=== PATIENT | female | born 1965 | race Caucasian/White ===

== ENCOUNTER 2017-05-03 11:40 | Emergency (ER) | payer MEDICAID ==
[~2017-05-03] VITALS: Ht 170.2 cm; Wt 60.0 kg
[2017-05-03 11:51] VITALS: BP 115/46
[2017-05-03] MEDS ORDERED: MORP15TA PO (12:44)
== END 2017-05-03 13:10 | disposition home or self-care (01) ==
LOC: ER 11:41
DX: S90.31XA Contusion of right foot, initial encounter (principal); G89.29 Other chronic pain; Z88.8 Allergy status to other drugs, medicaments and biological substances; Z79.899 Other long term (current) drug therapy; X58.XXXA Exposure to other specified factors, initial encounter; Y93.89 Activity, other specified; Y92.89 Other specified places as the place of occurrence of the external cause; Y99.8 Other external cause status
CPT/HCPCS: 73630; 99284; L3260

== ENCOUNTER 2017-10-22 09:59 | Emergency (ER) | payer MEDICAID ==
[~2017-10-22] VITALS: Ht 170.2 cm; Wt 61.3 kg
[2017-10-22] MEDS ORDERED: ketorolac trometh inj. 60 MG/2 ML VIAL IM ONE (10:20)
[2017-10-22 11:18] VITALS: BP 135/89
== END 2017-10-22 11:19 | disposition home or self-care (01) ==
LOC: ER 09:59
DX: S92.591A Other fracture of right lesser toe(s), initial encounter for closed fracture (principal); G89.29 Other chronic pain; Z88.1 Allergy status to other antibiotic agents; X58.XXXA Exposure to other specified factors, initial encounter; Y93.89 Activity, other specified; Y92.89 Other specified places as the place of occurrence of the external cause; Y99.9 Unspecified external cause status
CPT/HCPCS: 73630; 96372; 99284; J1885; L4360

== ENCOUNTER 2018-11-08 14:39 | Emergency (ER) | payer MEDICAID ==
[~2018-11-08] VITALS: Ht 170.2 cm; Wt 63.6 kg
[2018-11-08 14:50] VITALS: BP 154/97
== END 2018-11-08 16:10 | disposition home or self-care (01) ==
LOC: ER 14:40
DX: S83.8X1A Sprain of other specified parts of right knee, initial encounter (principal); G89.29 Other chronic pain; Z88.1 Allergy status to other antibiotic agents; X50.1XXA Overexertion from prolonged static or awkward postures, initial encounter; Y93.89 Activity, other specified; Y92.89 Other specified places as the place of occurrence of the external cause; Y99.9 Unspecified external cause status
CPT/HCPCS: 73564; 99284

== ENCOUNTER 2018-12-18 14:17 | Emergency (ER) | payer MEDICAID ==
[~2018-12-18] VITALS: Ht 170.2 cm; Wt 62.0 kg
[2018-12-18 16:04] LABS: BASOPHILS # (AUTO) 0.1 X10'3 (0-0.2); BASOPHILS % (AUTO) 0.9 % (0-1); EOSINOPHILS # (AUTO) 0.1 X10'3 (0-0.9); EOSINOPHILS % (AUTO) 2.5 % (0-6); HEMATOCRIT 35.8 % (35.0-45.0); LYMPHOCYTES # (AUTO) 1.1 X10'3 (1.1-4.8); LYMPHOCYTES % (AUTO) 18.4 % (21-51); MEAN CORPUSCULAR HEMOGLOBIN 32.9 PG (27.0-31.0); MEAN CORPUSCULAR HGB CONC 33.4 g/dL (33.0-36.5); MEAN CORPUSCULAR VOLUME 98.6 FL (78-98); MEAN PLATELET VOLUME 7.6 FL (7.4-10.4); MONOCYTES # (AUTO) 0.3 X10'3 (0-0.9); MONOCYTES % (AUTO) 5.9 % (2-12); NEUTROPHILS # (AUTO) 4.3 X10'3 (1.8-7.7); NEUTROPHILS % (AUTO) 72.3 % (42-75); PLATELET COUNT 207 X10'3 (140-440); RED BLOOD COUNT 3.63 X10'6 (4.20-5.60); RED CELL DISTRIBUTION WIDTH 14.3 % (11.5-14.5); WHITE BLOOD COUNT 5.9 X10'3 (4.5-11.0)
[2018-12-18 16:12] LABS: ALBUMIN 4.1 G/DL (3.4-5.0); ANION GAP 15 (8-16); BLOOD UREA NITROGEN 13 MG/DL (7-18); BUN/CREATININE RATIO 16.7 (6.6-38.0); CHLORIDE 100 MMOL/L (99-107); CREATININE 0.78 MG/DL (0.40-0.90); GLUCOSE 98 MG/DL (70-104); MAGNESIUM 1.5 MG/DL (1.5-2.4); POTASSIUM 4.1 MMOL/L (3.5-5.1); SODIUM 139 MMOL/L (135-145); TOTAL CARBON DIOXIDE 23.7 MMOL/L (24-32); eGFR 77 ML/MIN
[2018-12-18 16:58] VITALS: BP 162/100
== END 2018-12-18 16:55 | disposition home or self-care (01) ==
LOC: ER 14:18
DX: R55 Syncope and collapse (principal); S32.10XA Unspecified fracture of sacrum, initial encounter for closed fracture; G89.29 Other chronic pain; F17.200 Nicotine dependence, unspecified, uncomplicated; F12.90 Cannabis use, unspecified, uncomplicated; Z88.1 Allergy status to other antibiotic agents; W18.49XA Other slipping, tripping and stumbling without falling, initial encounter; Y93.89 Activity, other specified; Y92.89 Other specified places as the place of occurrence of the external cause; Y99.9 Unspecified external cause status
CPT/HCPCS: 36415; 71045; 72131; 80048; 83735; 84484; 85025; 93005; 99284

== ENCOUNTER 2019-04-08 12:45 | Emergency (ER) | payer MEDICAID ==
[~2019-04-08] VITALS: Ht 170.2 cm; Wt 63.6 kg
[2019-04-08 13:23] VITALS: BP 135/93
[2019-04-08] MEDS ORDERED: METH-360 PO (13:52)
== END 2019-04-08 14:02 | disposition home or self-care (01) ==
LOC: ER 12:46
DX: M54.2 Cervicalgia (principal); M25.512 Pain in left shoulder; G89.29 Other chronic pain; F12.90 Cannabis use, unspecified, uncomplicated; Z88.1 Allergy status to other antibiotic agents; Z79.899 Other long term (current) drug therapy
CPT/HCPCS: 99283

== ENCOUNTER 2022-07-19 10:08 | Emergency (ER) | payer MEDICAID ==
[~2022-07-19] VITALS: Ht 167.6 cm; Wt 56.8 kg
[~2022-07-19 10:08] MED LIST: METH-360 PO
[2022-07-19 11:34] VITALS: BP 152/98
== END 2022-07-19 11:39 | disposition home or self-care (01) ==
LOC: ER 10:09
DX: R41.82 Altered mental status, unspecified (principal); I10 Essential (primary) hypertension; G89.29 Other chronic pain; M54.9 Dorsalgia, unspecified; Z88.1 Allergy status to other antibiotic agents; W19.XXXA Unspecified fall, initial encounter; Z88.8 Allergy status to other drugs, medicaments and biological substances; Y93.89 Activity, other specified; Y92.89 Other specified places as the place of occurrence of the external cause; Y99.8 Other external cause status
CPT/HCPCS: 70450; 99284

== ENCOUNTER 2023-02-25 19:09 | Inpatient (IN) | payer MEDICAID ==
[~2023-02-25] VITALS: Ht 165.1 cm; Wt 52.5 kg
[2023-02-25 20:13] LABS: ALANINE AMINOTRANSFERASE 26 U/L (12-78); ALBUMIN 3.8 G/DL (3.4-5.0); ALKALINE PHOSPHATASE 86 IU/L (46-116); ANION GAP 14 (8-16); ASPARTATE AMINO TRANSFERASE 32 U/L (10-37); BILIRUBIN,TOTAL 0.4 MG/DL (0.1-1.0); BLOOD UREA NITROGEN 8 MG/DL (7-18); BUN/CREATININE RATIO 8.3 (10.0-20.0); CALCIUM 9.7 MG/DL (8.5-10.1); CHLORIDE 93 MMOL/L (99-107); CREATININE 0.96 MG/DL (0.40-0.90); GLUCOSE 88 MG/DL (70-104); POTASSIUM 4.1 MMOL/L (3.5-5.1); SODIUM 128 MMOL/L (135-145); TOTAL CARBON DIOXIDE 21.1 MMOL/L (24-32); TOTAL PROTEIN 7.8 G/DL (6.4-8.2); eCRCL 57 ML/MIN; eGFR 59 ML/MIN
[2023-02-25 20:16] LABS: ETHANOL 78 MG/DL (<10)
[2023-02-25 20:29] LABS: BASOPHILS # (AUTO) 0.1 X10'3 (0-0.2); BASOPHILS % (AUTO) 0.9 % (0-1); EOSINOPHILS # (AUTO) 0.1 X10'3 (0-0.9); EOSINOPHILS % (AUTO) 1.5 % (0-6); HEMATOCRIT 40.3 % (35.0-45.0); HEMOGLOBIN 13.6 g/dl (12.0-16.0); LYMPHOCYTES # (AUTO) 2.4 X10'3 (1.1-4.8); LYMPHOCYTES % (AUTO) 40.5 % (21-51); MEAN CORPUSCULAR HEMOGLOBIN 34.2 PG (27.0-31.0); MEAN CORPUSCULAR HGB CONC 33.7 g/dL (33.0-36.5); MEAN CORPUSCULAR VOLUME 101.6 FL (78-98); MEAN PLATELET VOLUME 7.2 FL (7.4-10.4); MONOCYTES # (AUTO) 0.5 X10'3 (0-0.9); MONOCYTES % (AUTO) 8.1 % (2-12); PLATELET COUNT 268 X10'3 (140-440); RED BLOOD COUNT 3.97 X10'6 (4.20-5.60); RED CELL DISTRIBUTION WIDTH 13.8 % (11.5-14.5)
[2023-02-25 21:05] LABS: BILIRUBIN,URINE NEGATIVE (Neg); COLOR,URINE YELLOW (Yellow); GLUCOSE, URINE NEGATIVE (Neg); KETONES,URINE TRACE mg/dl (Neg); LEUKOCYTE ESTERASE ,URINE NEGATIVE (Neg); NITRITES, URINE NEGATIVE (Neg); OCCULT BLOOD,URINE NEGATIVE (Neg); PH,URINE 5.5 (4.8-8.0); PROTEIN,URINE NEGATIVE (Neg); UROBILINOGEN,URINE 0.2 E.U/dL (0.2-1.0)
[2023-02-25 21:07] LABS: URINE AMPHETAMINE SCREEN NEGATIVE (Neg); URINE BARBITUATE SCREEN NEGATIVE (Neg); URINE BENZODIAZEPINES SCREEN NEGATIVE (Neg); URINE CANNABINOID SCREEN POSITIVE (Neg); URINE COCAINE SCREEN NEGATIVE (Neg); URINE METHADONE SCREEN NEGATIVE (Neg); URINE OPIATE SCREEN POSITIVE (Neg); URINE PHENCYCLIDINE SCREEN NEGATIVE (Neg)
[2023-02-25 21:28] LABS: UA COLLECTION TYPE STRAIGHT CATH
[2023-02-25 21:29] LABS: BACTERIA,URINE FEW /HPF (Neg); CLARITY,URINE SLIGHTLY CLOUDY (Clear); RBC,URINE 0-2 /HPF (0-2); SQUAMOUS EPITHELIAL CELL,UR FEW /LPF (FEW); WBC,URINE 0-4 /HPF (0-4)
--- NOTE | 2023-02-25 22:00 | NUR ---
PT YELLING AT STAFF MAKING DEMANDS FOR [employer] TEAS, A MENU AND AN ENQUIRER MAGAZINE. A/O X4 WITH D/P AND D/G. RIPPING ALL LEADS/ MONITORS OFF ATTEMPTING TO SELF TRANSFER FROM [facility]. PT MOVED TO A ROOM CLOSER TO NURSES STATION FOR DIRECT LINE OF SIGHT SUPERVISION. NOTIFIED OF BEHAVIOR. CONT TO YELL AT STAFF AND MAKE INNAPROPRIATE SEXUAL COMMENTS, "THIS IS THE BEST SEX I EVER HAD."
[2023-02-25] MEDS ORDERED: acetaminophen 325mg tablet PO STA (22:33)
[2023-02-25] MEDS ORDERED: haloperidol lactate 5mg/ml inj IM ONE (22:35)
[2023-02-25] MEDS ORDERED: normal saline 1000ML IV soln IV ONE (22:35)
[2023-02-25] MEDS ORDERED: diphenhydrAMINE 50 mg/ml inj IM ONE (22:35)
[2023-02-25] MEDS ORDERED: aspirin 81mg tab.chew PO ONE (22:35)
[2023-02-25] MEDS ORDERED: CefTRIAXone 2gm/D5W 50ml BAG 50 ML IV ONE (22:35)
[2023-02-25] MEDS ORDERED: ondansetron/PF 4mg/2ml inj IV ONE (22:35)
[2023-02-25] MEDS ORDERED: LORazepam 2 mg/ml vial IM ONE (22:35)
[2023-02-25] MEDS ORDERED: pantoprazole 40MG/NS 100ML BAG 100 ML IV ONE (22:50)
--- NOTE | 2023-02-25 23:07 | NUR ---
Funmi eagle in [facility] - 02/25/23 at 2317 by BART CALLED [facility] FOR TRANSPORTATION
[2023-02-25 23:15] LABS: LIPASE 42 U/L (16-77); PRO BRAIN NATRIURETIC PEPTIDE 139 PG/ML (0-125)
--- NOTE | 2023-02-25 23:23 | NUR ---
MEDS (HALDOL, ATIVAN, BENADRYL) ADMIN PER ORDER W/ NO ASE. PT IS STILL CURSING AT STAFF. PT BROTHER AT BEDSIDE. VSS. CONT TO RIP OFF LEADS AND MONITORS. IV MEDS DELAYED D/T BEHAVIOR AND TOLERANCE. NOTIFIED.
[2023-02-25 23:53] LABS: APTT 28 SECONDS (22-32); INR 0.9 INR; PROTHROMBIN TIME 10.1 SECONDS (9.0-12.0)
[2023-02-26] MEDS ORDERED: ondansetron/PF 4mg/2ml inj IV PRN (02:00)
[2023-02-26] MEDS ORDERED: potassium Cl 40MEQ/1/2NS 520ml 520 ML IV PRN (02:00)
[2023-02-26] MEDS ORDERED: potassium Cl 20 mEq SR tablet PO PRN ×2 (02:00)
[2023-02-26] MEDS ORDERED: magnesium 2GM in 50ml NS 50 ML IV PRN (02:00)
[2023-02-26] MEDS ORDERED: magnesium hydroxide 30ml (MOM) UD suspension PO PRN (02:00)
[2023-02-26] MEDS ORDERED: mag hydrox/Alum hydrox/simeth 30ml oral suspension PO PRN (02:00)
[2023-02-26] MEDS ORDERED: magnesium 4gm in 100ml NS 100 ML IV PRN (02:00)
[2023-02-26] MEDS ORDERED: haloperidol 5mg tablet PO PRN (02:00)
[2023-02-26] MEDS ORDERED: acetaminophen 325mg tablet PO PRN ×2 (02:00)
[2023-02-26] MEDS ORDERED: HYDROcodone/acetaminophen 5mg/325mg tablet PO PRN (02:00)
[2023-02-26] MEDS ORDERED: haloperidol lactate 5mg/ml inj IM PRN (02:00)
[2023-02-26] MEDS ORDERED: LORazepam 2 mg/ml vial IV PRN (02:00)
[2023-02-26] MEDS: normal saline 1000ml 1,000 ML IV SCH ×3 (02:28→22:00)
--- NOTE | 2023-02-26 05:52 | NUR ---
CALL TO HOSPITALIST TO NOTIFY THAT PT FAMILY IS REQUESTING A SALT MACHINE OPERATOR CONSULT. AGREEABLE W/ REQUEST AND STATES HE WILL PUT THE ORDER IN.
--- NOTE | 2023-02-26 06:41 | NUR ---
Patient in room ED 8. I have received report from Brandi in the ED and had the opportunity to ask questions and assume patient care.
--- NOTE | 2023-02-26 06:43 | NUR ---
GAVE REPORT TO JOVANNI ALLEN ON ORTHO. PT WILL BE GOING UP ON GURMABANK, ROOM AIR. PT IS RESTING IN BED.
[2023-02-26] MEDS ORDERED: TRAZ150T78 PO (06:48)
[2023-02-26] MEDS ORDERED: LISI20TA28 PO (06:49)
[2023-02-26] MEDS ORDERED: HYDR-3973 PO (06:49)
[2023-02-26 07:15] VITALS: BP 124/99; PULSE 69; RESP 16; TEMP 97; O2SAT 95
[2023-02-26] MEDS: K and/or MAG REPLACEMENT MC SCH ×2 (07:41→20:00)
[2023-02-26] MEDS: docusate sod 100mg capsule PO SCH ×2 (07:44→20:00)
[2023-02-26 07:45] VITALS: RESP 16; O2SAT 95
[2023-02-26] MEDS: thiamine 100mg tablet PO SCH ×3 (07:45→19:46)
[2023-02-26] MEDS: multivitamins, therapeutics tablet PO SCH (07:45)
[2023-02-26] MEDS ORDERED: pantoprazole 40 MG vial IV SCH (08:00)
--- NOTE | 2023-02-26 08:40 | NUR ---
Paged environmental services specialist per family request
[2023-02-26 08:45] LABS: EOSINOPHILS # (AUTO) 0.1 X10'3 (0-0.9); EOSINOPHILS % (AUTO) 1.8 % (0-6); HEMATOCRIT 33.2 % (35.0-45.0); HEMOGLOBIN 11.2 g/dl (12.0-16.0); LYMPHOCYTES # (AUTO) 1.6 X10'3 (1.1-4.8); LYMPHOCYTES % (AUTO) 40.3 % (21-51); MEAN CORPUSCULAR HEMOGLOBIN 34.6 PG (27.0-31.0); MEAN CORPUSCULAR HGB CONC 33.7 g/dL (33.0-36.5); MEAN CORPUSCULAR VOLUME 102.8 FL (78-98); MEAN PLATELET VOLUME 7.8 FL (7.4-10.4); MONOCYTES # (AUTO) 0.3 X10'3 (0-0.9); MONOCYTES % (AUTO) 7.5 % (2-12); NEUTROPHILS % (AUTO) 49.4 % (42-75); PLATELET COUNT 181 X10'3 (140-440); RED BLOOD COUNT 3.23 X10'6 (4.20-5.60); RED CELL DISTRIBUTION WIDTH 13.6 % (11.5-14.5)
[2023-02-26 09:08] LABS: MAGNESIUM 1.6 MG/DL (1.5-2.4); POTASSIUM 4.2 MMOL/L (3.5-5.1)
[2023-02-26 10:00] VITALS: BP 138/86; PULSE 81; RESP 16; TEMP 97.3; O2SAT 100
[2023-02-26 10:45] VITALS: RESP 16; O2SAT 98
[2023-02-26] MEDS ORDERED: pneumococcal 23-VAL P-sac vacc 25 mcg/0.5ml vial IMVAC ONE (13:50)
[2023-02-26] MEDS ORDERED: FLU VACC QS2023-24(6MOS UP)/PF 60 MCG/0.5 ML SYRINGE IM ONE (13:50)
[2023-02-26 18:00] VITALS: BP 157/93; PULSE 80; RESP 18; TEMP 97.6; O2SAT 98
--- NOTE | 2023-02-26 18:00 | NUR ---
Patient in room ORTHO 4009. I have received report from JOVANNI Leonardo and had the opportunity to ask questions and assume patient care.
--- NOTE | 2023-02-26 18:35 | NUR ---
Problems reprioritized. Patient report given, questions answered & plan of care reviewed with Alana.
[2023-02-26] MEDS: HYDROcodone/acetaminophen 10/325mg tab PO PRN (18:59)
[2023-02-26] MEDS ORDERED: enoxaparin 40mg/0.4ml syringe SQ SCH (20:00)
--- NOTE | 2023-02-26 20:00 | NUR ---
pt refused to have blood sugar taken. pt. agitated at this time. will continue to monitor. Addendum: 02/26/23 at 2200 by Alana Heredia RN Amended: Links added.
[2023-02-26 22:00] VITALS: BP 138/102; PULSE 75; RESP 13; TEMP 97.6; O2SAT 92
--- NOTE | 2023-02-26 22:01 | NUR ---
not done Addendum: 02/26/23 at 2201 by Alana Heredia RN Amended: Links added.
--- NOTE | 2023-02-27 01:23 | NUR ---
Dr. Malhotra, Pt in 6544C, Washta has a blood sugar of 54. yogurt, jello, coffee cream n sugar given. thanks, daniel [phone]
--- NOTE | 2023-02-27 01:23 | NUR ---
yogurt, jello, coffee c 6 creams and 6 sugars given. Addendum: 02/27/23 at 0124 by Alana Heredia RN Amended: Links added.
--- NOTE | 2023-02-27 06:19 | NUR ---
Problems reprioritized. Patient report given, questions answered & plan of care reviewed with JOVANNI Lewis.
[2023-02-27 07:10] LABS: BASOPHILS % (AUTO) 1.1 % (0-1); EOSINOPHILS # (AUTO) 0.1 X10'3 (0-0.9); EOSINOPHILS % (AUTO) 2.4 % (0-6); HEMATOCRIT 32.7 % (35.0-45.0); HEMOGLOBIN 11.1 g/dl (12.0-16.0); LYMPHOCYTES # (AUTO) 0.7 X10'3 (1.1-4.8); MEAN CORPUSCULAR HEMOGLOBIN 34.7 PG (27.0-31.0); MEAN CORPUSCULAR HGB CONC 34.1 g/dL (33.0-36.5); MEAN CORPUSCULAR VOLUME 101.9 FL (78-98); MEAN PLATELET VOLUME 7.4 FL (7.4-10.4); MONOCYTES # (AUTO) 0.2 X10'3 (0-0.9); MONOCYTES % (AUTO) 6.1 % (2-12); NEUTROPHILS # (AUTO) 2.8 X10'3 (1.8-7.7); NEUTROPHILS % (AUTO) 71.4 % (42-75); PLATELET COUNT 177 X10'3 (140-440); RED BLOOD COUNT 3.21 X10'6 (4.20-5.60); RED CELL DISTRIBUTION WIDTH 13.3 % (11.5-14.5); WHITE BLOOD COUNT 3.9 X10'3 (4.5-11.0)
[2023-02-27 07:14] LABS: PROTHROMBIN TIME 10.4 SECONDS (9.0-12.0)
--- NOTE | 2023-02-27 07:15 | NUR ---
Patient in room ORTHO 4009. I have received report from JOVANNI Warner and had the opportunity to ask questions and assume patient care.
[2023-02-27 07:19] LABS: ANION GAP 7 (8-16); BLOOD UREA NITROGEN 8 MG/DL (7-18); BUN/CREATININE RATIO 9.6 (10.0-20.0); CALCIUM 9.2 MG/DL (8.5-10.1); CHLORIDE 97 MMOL/L (99-107); CREATININE 0.83 MG/DL (0.40-0.90); GLUCOSE 90 MG/DL (70-104); MAGNESIUM 1.2 MG/DL (1.5-2.4); PHOSPHORUS 4.4 MG/DL (2.3-4.5); POTASSIUM 3.9 MMOL/L (3.5-5.1); SODIUM 129 MMOL/L (135-145); TOTAL CARBON DIOXIDE 25.1 MMOL/L (24-32); eCRCL 60 ML/MIN; eGFR 70 ML/MIN
[2023-02-27 07:20] LABS: ALANINE AMINOTRANSFERASE 18 U/L (12-78); ALKALINE PHOSPHATASE 80 IU/L (46-116); ASPARTATE AMINO TRANSFERASE 24 U/L (10-37); BILIRUBIN,TOTAL 0.3 MG/DL (0.1-1.0); LIPASE 34 U/L (16-77); TOTAL PROTEIN 6.1 G/DL (6.4-8.2)
[2023-02-27 07:51] VITALS: RESP 16; O2SAT 98
--- NOTE | 2023-02-27 07:53 | NUR ---
3-4 SECOND PEDAL CAPILLARY REFILL Addendum: 02/27/23 at 0808 by Indu ACEVEDO Amended: Links added.
[2023-02-27] MEDS ORDERED: lisinopril 20mg tablet PO SCH (08:00)
[2023-02-27] MEDS: thiamine 100mg tablet PO SCH (08:00)
[2023-02-27] MEDS: multivitamins, therapeutics tablet PO SCH (08:00)
[2023-02-27] MEDS: docusate sod 100mg capsule PO SCH (08:00)
[2023-02-27 08:28] VITALS: BP_SYST 142; PULSE 84
[2023-02-27 08:29] VITALS: RESP 16
[2023-02-27] MEDS: HYDROcodone/acetaminophen 10/325mg tab PO PRN (08:29)
--- NOTE | 2023-02-27 14:03 | NUR ---
PRESSURE ULCER EDUCATION: DEFINITION: A pressure ulcer is an area of skin that breaks down when you stay in one position too long. The constant pressure against the skin reduces the blood flow to that area and the affected tissue dies. CAUSES: "Being bedridden or in a wheelchair "Fragile skin "Having a chronic condition, such as diabetes or vascular disease "Inability to move certain parts of your body without assistance "Older age "Incontinence of urine or stool SYMPTOMS: "A reddened area that DOES NOT turn white when pressed on - this can be the beginning of a pressure ulcer "A blister, deep sore or a crater - these can be advanced pressure ulcers FIRST AID: "Relieve the pressure on this area "Keep the area clean and dry "Call your primary doctor if you see any of the above symptoms "DO NOT massage the area "DO NOT use a donut shaped or ring shaped pillow- these actually interfere with the blood flow and cause complications PREVENTION: "Check for pressure ulcers everyday "Change position at least every two hours to relieve pressure "Use items that help relieve pressure- pillows, sheepskin, foam padding, and powders. "Keep skin clean and dry "Eat healthy well balanced meals "Exercise daily IF YOU SEE ANY OF THESE SYMPTOMS WHILE IN THE HOSPITAL - TELL YOUR NURSE IMMEDIATELY. IF YOU SEE ANY OF THESE SYMPTOMS WHILE AT HOME OR HAVE ANY QUESTIONS OR CONCERNS ABOUT PRESSURE ULCERS - CALL YOUR PRIMARY DOCTOR IMMEDIATELY. Addendum: 02/27/23 at 1403 by Rhea Otero LVN Amended: Links added.
--- NOTE | 2023-02-27 19:12 | NUR ---
pt discharged to home with brother in private vehicle. all belongings sent with pt. iv dcd by day nurse. pt. in stable condition.
[2023-02-27] MEDS ORDERED: SODI100035 PO (19:14)
[2023-02-27] MEDS ORDERED: THIA50TA10 PO (19:16)
[2023-02-27] MEDS ORDERED: FOLI0.4T6 PO (19:16)
[2023-02-27] MEDS ORDERED: MULT-1219 PO (19:16)
[2023-02-28] MEDS ORDERED: LORazepam 1 MG tablet PO PRN (02:00)
[2023-02-28] MEDS ORDERED: LORazepam 2 mg/ml vial IV PRN (02:00)
[2023-03-02] MEDS ORDERED: LORazepam 1 MG tablet PO PRN (02:00)
[2023-03-02] MEDS ORDERED: LORazepam 2 mg/ml vial IV PRN (02:00)
[2023-03-02] MEDS ORDERED: folic acid 1mg tablet PO SCH (08:00)
== END 2023-02-27 19:12 | disposition home or self-care (01) | DRG 52 ==
LOC: ER 19:09 → ED HOLD 02-26 02:06 → ORTHO 4S 02-26 07:09
PROVIDERS: ADMIT Family Medicine; ATTEND Internal Medicine
DX: G92.8 Other toxic encephalopathy (principal); G31.2 Degeneration of nervous system due to alcohol; E87.1 Hypo-osmolality and hyponatremia; R45.851 Suicidal ideations; F10.20 Alcohol dependence, uncomplicated; F11.10 Opioid abuse, uncomplicated; I10 Essential (primary) hypertension; I25.10 Atherosclerotic heart disease of native coronary artery without angina pectoris; F32.A Depression, unspecified; F29 Unspecified psychosis not due to a substance or known physiological condition; M54.9 Dorsalgia, unspecified; G89.29 Other chronic pain; R79.89 Other specified abnormal findings of blood chemistry; F12.90 Cannabis use, unspecified, uncomplicated; Z88.1 Allergy status to other antibiotic agents
CPT/HCPCS: 36415; 70450; 71045; 80053; 80305; 80320; 81001; 82140; 82948; 83605; 83690; 83735; 83880; 84100; 84132; 84145; 84484; 85025; 85610; 85730; 87040; 87081; 90686; 90732; 92508; 92616; 97116; 97161; 99285; A4353; A6212; C9113; G0378; J0696; J1200; J1630; J2060; J2405; J7030

== ENCOUNTER 2024-12-29 12:14 | Inpatient (IN) | payer MEDICAID ==
[~2024-12-29] VITALS: Ht 165.1 cm; Wt 54.2 kg
[~2024-12-29 12:14] MED LIST changes: +HYDR-3973 PO; +LISI20TA28 PO; -METH-360 PO; +MULT-1219 PO; +SODI100035 PO; +THIA50TA10 PO; +TRAZ150T78 PO
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
--- NOTE | 2024-12-29 12:34 | ELECTROCARDIOGRAPH REPORT ---
[facility] Test Date: 2024-12-29 Test Time: 12:22:12 Pat Name: SIMÓN HENAO Department: EMERGENCY ROOM Room: ORTHO [facility] [place][note 2]2 Gender: F Electrical Mechanic: JUAN JOSÉ : 1965 Requested By: ELEANOR AKINS Order Number: [id number] Reading MD: Dr. Oscar Cruz Measurements Intervals [place] Rate: 88 P: 74 AR: 140 QRS: 53 QRSD: 88 T: 36 QT: 348 QTc: 421 Interpretive Statements Sinus rhythm Probable left atrial enlargement Low voltage, precordial leads Electronically Signed On 12-31-2024 21:44:[address] Oscar Cruz Please click the below link to view image of tracing.
[2024-12-29 12:46] LABS: CREATININE 0.89 MG/DL (0.40-0.90); TOTAL CARBON DIOXIDE 28.2 MMOL/L (24-32); eCRCL 56 ML/MIN; eGFR 64 ML/MIN
[2024-12-29 12:50] LABS: APTT 27 SECONDS (22-32); INR 1.0 INR
[2024-12-29 12:55] LABS: MEAN PLATELET VOLUME 7.9 FL (7.4-10.4); RED CELL DISTRIBUTION WIDTH 14.3 % (11.5-14.5)
--- NOTE | 2024-12-29 12:56 | RADIOLOGY REPORT ---
EXAM: CT CT STROKE ALERT INDICATION: Stroke Alert TECHNIQUE: CT of the head without intravenous contrast. Radiation Dose : 1. Head: CT Dose: CTDI volume is 47.1 mGy. Dose-length product is 771.5 mGy*cm The dose indicators for CT are the volume Computed Tomography (CT) Dose Index (CTDIvol) and the Dose Length Product (DLP), and are measured in units of mGy and mGy-cm, respectively. These indicators are not patient dose, but values generated from the CT scanner acquisition factors. The report includes radiation exposure data for exposures received during this examination. COMPARISON: CT CT HEAD on DOS: 02/25/23, CT HEAD on DOS: 07/19/22 FINDINGS: There is no evidence of acute intracranial hemorrhage, extra-axial collection, mass effect, midline shift, herniation or hydrocephalus. The ventricles, sulci and cisterns are age appropriate. The herrera-white differentiation is intact. Patchy periventricular and subcortical white matter hypoattenuation is nonspecific but may be related to small vessel ischemic disease. The visualized paranasal sinuses and mastoid air cells are clear. The surrounding soft tissues and osseous structures are unremarkable. IMPRESSION: No acute intracranial abnormality. Radiation optimization: All CT scans at this facility use at least one of these dose optimization techniques: automated exposure control? mA and/or kV adjustment per patient size (includes targeted exams where dose is matched to clinical indication)? or iterative reconstruction.
--- NOTE | 2024-12-29 13:01 | RADIOLOGY REPORT ---
CHEST RADIOGRAPH Indication: Stroke Alert Technique: Single frontal view of the chest was obtained COMPARISON: DI CHEST,SINGLE VIEW on DOS: 02/25/23, CHEST,SINGLE VIEW on DOS: 12/18/18 FINDINGS: Lines and Tubes: None Lungs: Clear Pleura: No effusion. No pneumothorax. Cardiomediastinal contours: Unremarkable Bones: Unremarkable IMPRESSION: No acute disease.
--- NOTE | 2024-12-29 19:45 | [facility] CONSULT REPORT ---
[facility] Procedure Note [facility] Procedure Note Consult [facility] Note # Demographics Consult Type: Acute Stroke Level 2 (4.5-24 hrs) Patient Location: Emergency Room First Name: SIMÓN Last Name: EARLENE Date of : 1965 Age: 59 Gender: Female Facility: [facility] Time of Initial Page (): 12/29/2024 19:10 First Contact with Site (): 12/29/2024 19:11 # HPI Chief Complaint: - seizure History: 59 y/o F had an episode of possible seizure. She states on Saturday she had an episode where she had visual changes (which she describes as fast moving vision and white lights), her thought process was "messed up," and it lasted 15 minutes. After she had some transient L facial numbness. She has a history of a TBI. She says she was diagnosed with "seizures" last week. She said she has had 4 episodes. She had one episode where her brother told her that she was unresponsive and her eyes was glazed over for two minutes, at which time she was standing. She says she has never lost awareness and she knew her brother was in front of her. She says the other two episodes were "head rushes." No tongue biting, loss of bowel/bladder control, history of seizures, weakness, headache. She endorses chronic numbness in her feet. She has baseline R sided numbness. # Scores Time of exam and NIHSS (): 12/29/2024 19:28 Level of Consciousness 1a: [0] = Alert; keenly responsive LOC Questions 1b: [0] = Answers both questions correctly LOC Commands 1c: [0] = Performs both tasks correctly Best Gaze 2: [0] = Normal Visual 3: [0] = No visual loss Facial Palsy 4: [0] = Normal symmetrical movements Motor Arm Left 5a: [0] = No drift Motor Arm Right 5b: [0] = No drift Motor Leg Left 6a: [0] = No drift Motor Leg Right 6b: [0] = No drift Limb Ataxia 7: [0] = Absent Sensory 8: [1] = Dcwq-cu-skensiyw sensory loss Best Language 9: [0] = No aphasia Dysarthria 10: [0] = Normal Extinction and Inattention 11: [0] = No abnormality NIHSS Total: 1 # Exam SBP: 147 DBP: 112 Sensory: - decreased sensation right upper extremity - decreased sensation right lower extremity chronic as per patient # PMH-FH-SH Past Medical History: - hypertension TBI Medications: - antihypertensive trazodone, gabapentin, norco # Data Head CT: - no bleed - per radiologist read # Assessment Impression: - Seizure-like Activity Episodes may be secondary to seizure but are a bit atypical so would pursue work-up first with MRI/EEG, if they are abnormal, may want to consider anti- seizure medication but would have Neuro f/u at that time # Plan Labs: - CBC - comprehensive metabolic panel - ua - TSH - troponin orthostatic vital signs Imaging: (urgency: routine): - MRI Brain with AND without contrast Diagnostic Test: - EEG Other: - If patient has any neurological deterioration please call me back immediately - telemetry monitoring - I have discussed my recommendations with the referring provider - seizure precautions # Logistics Attestation of consult completion: The patient is located at: [facility]. Facility staff participated in the visit. I performed this telemedicine visit from my offsite office utilizing interactive 2 way audio and visual telecommunication technology at the request of the onsite emergency room provider. Total time spent in telemedicine encounter: I spent 30 minutes reviewing clin ical data and/or imaging, obtaining history, examining the patient, communicating with the onsite care team, and in preparation of this report. # Demographics First Name: SIMÓN Last Name: EARLENE Facility: [facility] Electronically signed at 12/29/2024 19:45 (Stewart Time) by Lavon Denise MD Neuro Consult Order placed for: Yes LAVON DENISE MD Dec 29, 2024 19:45
[2024-12-29] MEDS ORDERED: magnesium sulf-water 2g/50mL 50 ML IV PRN (21:05)
[2024-12-29] MEDS ORDERED: potassium Cl 20 mEq SR tablet PO PRN ×2 (21:05)
[2024-12-29] MEDS ORDERED: magnesium hydroxide 30ml (MOM) UD suspension PO PRN (21:05)
[2024-12-29] MEDS ORDERED: potassium Cl 40MEQ/1/2NS 520ml 520 ML IV PRN (21:05)
[2024-12-29] MEDS ORDERED: magnesium sulf-water 4G/100mL 100 ML IV PRN (21:05)
[2024-12-29] MEDS ORDERED: ondansetron/PF 4mg/2ml inj IV PRN (21:05)
[2024-12-29] MEDS ORDERED: mag hydrox/Alum hydrox/simeth 30ml oral suspension PO PRN (21:05)
[2024-12-29 21:44] LABS: APTT 28 SECONDS (22-32); INR 1.0 INR
[2024-12-29 21:56] LABS: CREATININE 0.84 MG/DL (0.40-0.90); PHOSPHORUS 4.3 MG/DL (2.3-4.5); PRO BRAIN NATRIURETIC PEPTIDE 152 PG/ML (0-125); TOTAL CARBON DIOXIDE 26.5 MMOL/L (24-32); eCRCL 59 ML/MIN; eGFR 69 ML/MIN
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
[2024-12-29 22:43] VITALS: BP 132/78; PULSE 63; RESP 15; TEMP 97.7; O2SAT 99
[2024-12-29] MEDS ORDERED: GABA300T28 PO (23:49)
[2024-12-29] MEDS ORDERED: LIDO700A47 TOP (23:49)
[2024-12-30 02:00] VITALS: BP 108/77; PULSE 70; RESP 15; TEMP 96.9; O2SAT 98
[2024-12-30 05:29] LABS: MEAN PLATELET VOLUME 7.8 FL (7.4-10.4); RED CELL DISTRIBUTION WIDTH 14.0 % (11.5-14.5)
[2024-12-30 05:44] LABS: CHOL/HDL RATIO 2.7 (0.00-4.99); CREATININE 0.87 MG/DL (0.40-0.90); LDL CHOLESTEROL 79 MG/DL (50-100); TOTAL CARBON DIOXIDE 26.7 MMOL/L (24-32); eCRCL 58 ML/MIN; eGFR 66 ML/MIN
[2024-12-30 06:00] VITALS: BP_SYST 100; BP_SYST 158; BP_DIAS 68; BP_DIAS 76; PULSE 59; PULSE 80; RESP 12; RESP 15; TEMP 96.5; TEMP 97.7; O2SAT 93; O2SAT 99
[2024-12-30] MEDS: multivitamins, therapeutics tablet PO SCH (07:40)
[2024-12-30] MEDS: magnesium Cl slow-release 64mg tablet PO PRN (07:41)
[2024-12-30] MEDS: docusate sod 100mg capsule PO SCH (07:43)
[2024-12-30] MEDS: K and/or MAG REPLACEMENT MC SCH (07:44)
[2024-12-30 08:00] VITALS: BP_SYST 124; BP_SYST 129; BP_SYST 136; BP_DIAS 82; BP_DIAS 87; BP_DIAS 88; PULSE 59; PULSE 65; PULSE 82
--- NOTE | 2024-12-30 08:41 | RADIOLOGY REPORT ---
CLINICAL INDICATION: Stroke COMPARISON: CT dated 12/29/2024. TECHNIQUE: Multisequence multiplanar MRI images of the brain were obtained prior to and after the uneventful administration of gadolinium contrast. contrast. FINDINGS: No acute infarct or hemorrhage. No mass or midline shift. Scattered areas of T2/FLAIR hyperintense signal in the periventricular and subcortical white matter are nonspecific, but most likely sequelae of chronic small vessel ischemic disease. More focal area of encephalomalacia in the left superior frontoparietal region, likely sequelae of old infarct. No abnormal parenchymal or meningeal enhancement. Ventricles and sulci are within normal limits. Basal cisterns are patent. Cerebellum, brainstem, and midline structures are within normal limits. Mild mucosal thickening of the paranasal sinuses. Orbits are grossly unremarkable. IMPRESSION: 1. No evidence of acute intracranial abnormality. 2. No mass or abnormal postcontrast enhancement. 3. Nonacute findings as described above.
[2024-12-30] MEDS ORDERED: GADOTERATE MEGLUMINE 7.5 MMOL/15 ML VIAL IV ONE (09:44)
[2024-12-30 10:00] VITALS: BP 136/88; PULSE 59; RESP 12; TEMP 97.9; O2SAT 98
[2024-12-30] MEDS: HYDROcodone/acetaminophen 10/325mg tab PO PRN (10:43)
--- NOTE | 2024-12-30 10:58 | PROCEDURE NOTE ---
Procedure Note Providers to CC ~ Interpretation: [place] EEG Note # Demographics Type of EEG Read: - Routine EEG - video Patient Location: Inpatient First Name: Shelly Last Name: Edilberto Date of : 1965 Age: 59 Gender: Female Facility: [facility] Time of Initial Page (): 12/30/2024 09:25 First Contact with Site ( Time): 12/30/2024 09:43 # EEG Interpretation Start Time of EEG Read (): 12/30/2024 09:49 Stop Time of EEG Read (): 12/30/2024 10:09 Duration: 0h 20m Technical Details: - The EEG electrodes were placed using the standard International 10-20 system of electrode placement. Video and an accessory EKG lead were used during the course of this study. Indication: - seizure # Description Photic Stimulation: Performed Hyperventilation: NOT performed Phases Captured: - awake - drowsy - sleep Symmetry: symmetric Posterior Dominant Rhythm: - present, attenuates on eye opening 9Hz Predominant Frequencies: - posterior dominant alpha (8-12 Hz) - abundant (50-89%) Superimposed Frequencies: - beta (>15 Hz) - abundant (50-89%) Amplitude: normal Reactivity: yes Variability: yes Continuity: continuous # Abnormalities Stimulation: - photic stimulation does NOT cause abnormalities Epileptiform Abnormalities: - NOT present Focal Slowing: no Seizure: - NOT present # Impression Impression: normal # Clinical Correlation Clinical Correlation: A normal EEG does not exclude nor support the diagnosis of epilepsy. # Logistics Telemedicine: remote EEG review: EEG reviewed remotely # Demographics First Name: Shelly Last Name: Edilberto Facility: [facility] JENNIFER LLANOS MD Dec 30, 2024 10:58
[2024-12-30] MEDS ORDERED: GABA300C PO ×2 (11:43→11:58)
[2024-12-30 12:06] LABS: URINE AMPHETAMINE SCREEN NEGATIVE (Neg); URINE BARBITUATE SCREEN NEGATIVE (Neg); URINE BENZODIAZEPINES SCREEN NEGATIVE (Neg); URINE CANNABINOID SCREEN POSITIVE (Neg); URINE COCAINE SCREEN NEGATIVE (Neg); URINE METHADONE SCREEN NEGATIVE (Neg); URINE OPIATE SCREEN POSITIVE (Neg); URINE PHENCYCLIDINE SCREEN NEGATIVE (Neg)
[2024-12-30 12:09] VITALS: RESP 15
[2024-12-30] MEDS ORDERED: ATOR20TA66 PO (13:04)
[2024-12-30] MEDS ORDERED: ASPI81TA53 PO (13:04)
--- NOTE | 2024-12-30 18:52 | CARDIOLOGY REPORT ---
APPROVED REPORT EXAM: Comprehensive 2D, Doppler, and color-flow Echocardiogram. Patient Location: 401 Blood Pressure: 100/68 mmHg Heart Rate: 56 bpm Indications CVA/TIA (Bubble Study not ordered) ProBNP: 152 Hypertension Marijuana Use NO PROJECT LEAD NO Previous ECHO 2D Dimensions LA Diam 3.0 cm IVSd 0.9 (0.7-1.1cm) LVDd 4.3 cm PWd 1.1 (0.7-1.1cm) IVSs 1.5 (0.8-1.2cm) LVDs 2.7 (2.5-4.0cm) PWs 1.0 (0.8-1.2cm) LVOT Diameter 1.87 (1.8-2.4cm) LVEF(%) 66.7 (>50%) Ao Asc Diam. 2.73 cm IVC 13.13 mm FS (%) 36.6 % SV 54.1 ml CO 3.2 L/min M-Mode Dimensions Left Atrium(MM) 3.39 (2.5-4.0cm) Aortic Root 2.16 (2.2-3.7cm) Aortic Cusp Exc 1.38 (1.5-2.0cm) Aortic Valve AoV Peak Keaton. 120.0 cm/s AoV VTI 26.8 cm AO Peak GR. 5.8 mmHg AO Mean GR. 4 mmHg LVOT VTI 22.30 cm LVOT Peak Keaton. 95.0 cm/s MAVERICK(VTI)/BSA 2.27 cm2/m2 MAVERICK (VTI) 2.27 cm2 AV DI 0.83 % Mitral Valve MV E Velocity 84.9 cm/s MV Peak Gr. 5 mmHg MV DECEL TIME 348 ms MV A Velocity 117.5 cm/s MV PHT 64 ms E/A Ratio 0.7 MVA (PHT) 3.44 cm2 MV VMax 116.7 cm/s TDI Lateral E' P. V 8.72 cm/s Medial E' P. V 10.90 cm/s E/Lateral E' 9.7 E/Medial E' 7.8 Tricuspid Valve TR P. Velocity 117 cm/s RAP ESTIMATE 10 mmHg TR Peak Gr. 5 mmHg RVSP 15 mmHg LEFT VENTRICLE Normal LV size and wall thickness. Overall systolic function is normal. LVEF is 65-70%. RIGHT VENTRICLE RV is normal size and function. ATRIA The left atrium size is normal. AORTIC VALVE Trileaflet AV appears mildly sclerotic without stenosis. No insufficiency. MITRAL VALVE Mitral valve leaflets are mildly thickened with mild annular calcification. No stenosis. Trace regurgitation. TRICUSPID VALVE The tricuspid valve is normal in structure with trivial regurgitation. PULMONIC VALVE Pulmonic valve is grossly normal in structure with physiologic insufficiency. GREAT VESSELS The aortic root is normal in size. The ascending aorta is normal in size. The IVC is normal in size and collapses >50% with inspiration. PERICARDIUM Normal pericardium. No effusion. Other Information Study Quality: Adequate Conclusion Normal LV size and wall thickness. Overall systolic function is normal. LVEF is 65-70%. RV is normal size and function. The left atrium size is normal. Trileaflet AV appears mildly sclerotic without stenosis. No insufficiency. Mitral valve leaflets are mildly thickened with mild annular calcification. No stenosis. Trace regurgitation. The tricuspid valve is normal in structure with trivial regurgitation. Normal pericardium. No effusion.
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
== END 2024-12-30 13:58 | disposition home or self-care (01) | DRG 47 ==
LOC: ER 12:15 → ED HOLD 21:01 → ORTHO 4S 22:30
PROVIDERS: ADMIT Internal Medicine Pulmonary Disease; ATTEND Internal Medicine Pulmonary Disease
PROC: 4A00X4Z Measurement of Central Nervous Electrical Activity, External Approach (ICD-10-PCS; principal; 2024-12-30)
DX: G45.9 Transient cerebral ischemic attack, unspecified (principal); R56.9 Unspecified convulsions; I10 Essential (primary) hypertension; G89.4 Chronic pain syndrome; F12.90 Cannabis use, unspecified, uncomplicated
CPT/HCPCS: 36415; 70450; 70553; 71045; 80048; 80053; 80061; 80305; 83036; 83735; 83880; 84100; 84443; 84484; 85025; 85610; 85730; 87081; 93005; 93306; 95816; 97161; 97530; G0378